=== PATIENT | female | born 1950 | race Caucasian/White ===

== ENCOUNTER 2023-12-29 15:27 | Inpatient (IN) | payer MEDICARE, OTHER, SELFPAY ==
--- NOTE | ~2023-12-29 | XR_ITS ---
EXAMINATION: XR femur RT min 2V DATE: 12/29/2023 17:27 INDICATION: Right lower limb spider bite and cellulitis. TECHNIQUE: 2 views of right femur on 4 radiographs were obtained. COMPARISON: None. FINDINGS: Bone alignment is normal. No fracture. The hip joint space is normal. There is mild knee attila int osteoarthritis. No knee joint effusion. No soft tissue gas. IMPRESSION: 1. Mild right knee osteoarthritis. Reviewed, dictated and finalized at location E.
[2023-12-29 15:51] VITALS: PULSE 99; RESP 20; TEMP 36.2; O2SAT 94
[2023-12-29 15:54] VITALS: BP 113/70
--- NOTE | 2023-12-29 16:46 | ED.GENADULT ---
HPI - General Adult General Chief complaint: Skin/Abscess/Foreign Body <Jesse Kwon PA-C - Last Filed: 12/29/23 19:50> Stated complaint: spider bite <BHAVIN Lorenzo Last Filed: 12/29/23 19:50> Time Seen by Provider: 12/29/23 16:05 <BHAVIN Lorenzo Last Filed: 12/29/23 19:50> Source: patient <BHAVIN Lorenzo Last Filed: 12/29/23 19:50> Mode of arrival: ambulatory <BHAVIN Lorenzo Last Filed: 12/29/23 19:50> Limitations: no limitations <BHAVIN Lorenzo Last Filed: 12/29/23 19:50> History of Present Illness HPI narrative: This is a 73-year-old female with PMH of HTN who presents to the ED for chief complaint of a spider bite to the right leg. Reports that this occurred around 5 days ago. She was seen by primary care doctor the next day given Bactrim prescription. She has been on Bactrim for 3-4 days. States the redness continues to expand outward from the bite. Reports a dark area to the central bite. States the area is warm and tender to touch. Denies fevers, chills, nausea, vomiting, diarrhea, cough, abdominal pain. <BHAVIN Lorenzo Last Filed: 12/29/23 19:50> Related Data Home medications: Home Medications Medication Instructions Recorded Confirmed lisinopril 10 mg tablet 10 mg PO DAILY 04/18/22 12/29/23 paroxetine HCl 20 mg tablet 20 mg PO DAILY 04/18/22 12/29/23 albuterol sulfate 90 mcg/actuation 2 puff inhalation Q4H 12/29/23 12/29/23 aerosol inhaler calcium carbonate 600 mg-vitamin 1 tablet PO BID 12/29/23 12/29/23 D3 5 mcg (200 unit) tablet <BHAVIN Lorenzo Last Filed: 12/29/23 19:50> Allergies/adverse reactions: Allergies Allergy/AdvReac Type Severity Reaction Status Date / Time clindamycin [From Cleocin] Allergy Intermediate Hives Verified 12/29/23 15:55 codeine Allergy Mild Hives Verified 12/29/23 15:55 doxycycline [From Vibramycin] Allergy Mild Hives Verified 12/29/23 15:55 oxytetracycline Allergy Mild Hives Verified 12/29/23 15:55 [From Terramycin] methylprednisolone Allergy Hives Verified 12/29/23 15:55 [From Medrol] Penicillins Allergy Hives Verified 12/29/23 15:55 <Jesse Kwon PA-C - Last Filed: 12/29/23 19:50> Review of Systems Review of Systems: All systems as dictated in HPI <BHAVIN Lorenzo Last Filed: 12/29/23 19:50> [facility] Past Medical History Medical History: Medical History (Updated 12/30/23 @ 00:03 by Zo Hagen APRN) Anxiety Asthma Depression Humerus fracture left Hypertension Insomnia Osteopenia Screening mammogram, encounter for <BHAVIN Lorenzo Last Filed: 12/29/23 19:50> Surgical History Surgical History: Surgical History History of appendectomy (~1997) History of cholecystectomy (~1991) History of neurologic surgery sciatic nerve History of orthopedic surgery broken jaw repair History of tubal ligation <BHAVIN Lorenzo Last Filed: 12/29/23 19:50> Family History Family History: Family History Mother Hypertension Malignant tumor of ovary Alzheimers disease Father Alcoholism Other Breast cancer maternal aunt paternal aunt <BHAVIN Lorenzo Last Filed: 12/29/23 19:50> Social History Social History: Social History Smoking packs per day: 0.5 Smoking cigarettes per day: 10.0 Smoking status: Current every day smoker Tobacco type: cigarettes Alcohol intake: never Substance use: never Substance use type: does not use Do You Feel Safe in your Home?: Yes Lack of Transportation: No Lack of Food: Never True Current Housing: I Have Housing Concerned About Future Housing: No Difficulty Paying Gas/Electric Bills: No Difficulty Paying for Meds: No Currently Unemployed: No E
[2023-12-29 17:23] LABS: Basophils Absolute Auto 0.1 K/mm3 (0.0-0.1); Basophils Percent Auto 0.6 % (0.2-1.2); Eosinophils Absolute Auto 0.4 K/mm3 (0-0.3); Eosinophils Percent Auto 3.9 % (0-4.4); Hematocrit 43.8 % (37.0-47.0); Hemoglobin 15.3 g/dL (12.0-15.0); Immature Granulocyte Absolute 0.02 K/mm3 (0.00-0.031); Immature Granulocyte Percent A 0.2 % (0-0.5); Lymphocytes Absolute Auto 2.98 K/mm3 (0.9-3.2); Lymphocytes Percent Auto 30.4 % (18.3-44.2); Mean Corpuscular HGB Conc 34.9 g/dl (32-36); Mean Corpuscular Hemoglobin 34.2 pg (26-34); Mean Corpuscular Volume 97.8 fl (80-100); Mean Platelet Volume 9.7 fl (7.4-10.4); Monocytes Absolute Auto 0.6 K/mm3 (0.1-0.6); Monocytes Percent Auto 6.5 % (2.6-8.5); Neutrophils Absolute Auto 5.7 K/mm3 (1.3-6.7); Neutrophils Percent Auto 58.4 % (45.5-73.1); Platelet Count Result 250 k/mm3 (150-375); Red Blood Count 4.48 M/mm3 (4.2-5.4); Red Cell Distribution Width 13.1 % (11.5-14.5); White Blood Count 9.8 K/mm3 (4.5-10.0)
[2023-12-29 17:58] LABS: Lactic Acid Reflex 0.8 mmol/L (0.7-2.0)
[2023-12-29 18:01] LABS: Alanine Aminotransferase 12 U/L (6-35); Albumin Level 4.4 g/dL (3.5-5.1); Alkaline Phosphatase 85 U/L (38-126); Anion Gap 7 mmol/L (4-12); Aspartate Amino Transferase 22 U/L (14-36); Bilirubin,Total 0.6 mg/dL (0.2-1.3); Blood Urea Nitrogen 20 mg/dL (7-17); CRP 0.6 mg/dL (<1.0); Calcium 9.6 mg/dL (8.4-10.2); Carbon Dioxide 26 mmol/L (22-30); Chloride 103 mmol/L (98-107); Estimated CRCL calculation 34 ml/min; Estimated Glomerular Filt Rate 40; Glucose 91 mg/dL (65-110); Potassium 4.2 mmol/L (3.4-5.0); Sodium 136 mmol/L (137-145)
[2023-12-29] MEDS: CEFEPIME 2 GM/NS 50 ML 2 GM/50 ML BAG IVPB (18:49)
[2023-12-29] MEDS: ACETAMINOPHEN 500 MG TABLET 1000 MG PO (18:49)
[2023-12-29] MEDS: SODIUM CHLORIDE 0.9% IV 1,000 ML 999 ML IV CONT (18:51)
--- NOTE | 2023-12-29 18:56 | PM.IMHP ---
H&P: HPI History of Present Illness Date/Time: 12/29/23 18:56 Chief Complaint: Right leg skin redness and irritation suspect spider bite Narrative: 73-year-old female with PMHx: of HTN compliant with medication presented to the emergency room with a chief complaint of increasing skin irritation redness swelling and pain. Patient states that she was diagnosed with suspected spider bite to right leg she went to her PCP was given a prescription for Bactrim which she took for 4 days, patient reports no relief an area continued to get larger, patient reports she noticed a dark area in the middle of where she was bitten she admits ongoing warmth and tenderness, she denies any fever chills nausea vomiting or abdominal pain or chest pain at this time. She admits she is an everyday smoker and has a history of COPD. ED Work-up reveals: Initial vitals: b/p 113/70, rr 20 pr 99, sp02 94 % on RA, T: 97.2, labs reveal normal white count, CRP and lactic acid are normal right femur x-ray is low suspicion for necrotizing infection at this time, vancomycin and cefepime initiated in the ED patient agree to admission for further antibiotic treatment Review of Systems Review of Systems: All systems reviewed & are unremarkable except as noted in HPI and below PMFSH Past Medical History Medical History (Updated 12/30/23 @ 00:03 by Zo Hagen APRN) Anxiety Asthma Depression Humerus fracture left Hypertension Insomnia Osteopenia Screening mammogram, encounter for Surgical History Surgical History History of appendectomy (~1997) History of cholecystectomy (~1991) History of neurologic surgery sciatic nerve History of orthopedic surgery broken jaw repair History of tubal ligation Family History Family History Mother Hypertension Malignant tumor of ovary Alzheimers disease Father Alcoholism Other Breast cancer maternal aunt paternal aunt Social History Social History Smoking packs per day: 0.5 Smoking cigarettes per day: 10.0 Smoking status: Current every day smoker Tobacco type: cigarettes Alcohol intake: never Substance use: never Substance use type: does not use Do You Feel Safe in your Home?: Yes Lack of Transportation: No Lack of Food: Never True Current Housing: I Have Housing Concerned About Future Housing: No Difficulty Paying Gas/Electric Bills: No Difficulty Paying for Meds: No Currently Unemployed: No Education: Grade School Difficulty w/ Childcare or Family Care: No Living arrangements: other Additional living arrangements comments: Occupation/Education: retired Gender identity (if verbalized by the patient): Female Sexual Orientation (if Verbalized by the Patient): Straight or Heterosexual Spiritual care concerns: No Meds Home Medications and Allergies Home Medications Medication Instructions Recorded Confirmed Type lisinopril 10 mg tablet 10 mg PO DAILY 04/18/22 12/29/23 History paroxetine HCl 20 mg tablet 20 mg PO DAILY 04/18/22 12/29/23 History albuterol sulfate 90 mcg/actuation 2 puff inhalation Q4H 12/29/23 12/29/23 History aerosol inhaler calcium carbonate 600 mg-vitamin 1 tablet PO BID 12/29/23 12/29/23 History D3 5 mcg (200 unit) tablet Allergies Allergy/AdvReac Type Severity Reaction Status Date / Time clindamycin [From Cleocin] Allergy Intermediate Hives Verified 12/29/23 15:55 codeine Allergy Mild Hives Verified 12/29/23 15:55 doxycycline [From Vibramycin] Allergy Mild Hives Verified 12/29/23 15:55 oxytetracycline Allergy Mild Hives Verified 12/29/23 15:55 [From Terramycin] methylprednisolone Allergy Hives Verified 12/29/23 15:55 [From Medrol] Penicillins Allergy Hives Verified 12/29/23 15:55 Vital Signs Vital Signs - 24 hr
[2023-12-29] MEDS: VANCOMYCIN 1,250 MG/NS 250 ML 1,250 MG/250 ML BAG 166.67 MG IVPB (20:00)
[2023-12-29 20:57] VITALS: TEMP 37
[2023-12-29 21:20] VITALS: BP 116/83; PULSE 72; RESP 18; TEMP 37; O2SAT 97
[2023-12-29 21:30] VITALS: BMI 31.4
[2023-12-30 04:35] VITALS: BP 101/60; PULSE 71; PULSE 72; RESP 16; TEMP 36.1; O2SAT 100
[2023-12-30] MEDS: ALBUTEROL SULFATE (*SP) AEROSOL 1 PUFF 2 PUFF INHALATION ×6 (04:35→23:56)
[2023-12-30 05:13] LABS: Appearance Urine Clear (Clear); Bacteria Urine None Seen /hpf; Bilirubin Urine Negative (Negative); Blood Urine Trace (Negative); Color Urine Yellow (Yellow); Glucose Urine UA Negative (Negative); Ketones Urine Negative (Negative); Leukocyte Esterase Ur 1+ LEU/UL (Negative); Need Manual Microscopic Reviewed; Nitrate Urine Negative (Negative); Non Pathogenic Casts 0-2; Protein Urine Negative (Negative); Specific Grav Ur 1.016 (1.001-1.035); Squamous Epithelial Cell Urine None Seen /hpf (Few); Urobilinogen Urine 0.2 mg/dL (<2.0); WBC Urine 0-5 /hpf (0-3)
[2023-12-30 05:14] LABS: Add Urine Microscopic? YES
[2023-12-30] MEDS: CEFEPIME 1 GM/NS 50 ML 1 GM/50 ML BAG IVPB ×2 (06:00→18:05)
[2023-12-30 06:29] LABS: Alanine Aminotransferase 11 U/L (6-35); Albumin Level 3.9 g/dL (3.5-5.1); Alkaline Phosphatase 80 U/L (38-126); Anion Gap 5 mmol/L (4-12); Aspartate Amino Transferase 24 U/L (14-36); Bilirubin,Total 0.7 mg/dL (0.2-1.3); Blood Urea Nitrogen 17 mg/dL (7-17); Calcium 8.9 mg/dL (8.4-10.2); Carbon Dioxide 26 mmol/L (22-30); Chloride 106 mmol/L (98-107); Estimated CRCL calculation 42 ml/min; Estimated Glomerular Filt Rate 49; Glucose 92 mg/dL (65-110); Potassium 4.1 mmol/L (3.4-5.0); Sodium 137 mmol/L (137-145)
--- NOTE | 2023-12-30 08:22 | PM.IMPN ---
Progress Note: A&P Assessment and Plan (1) Cellulitis: Code(s): L03.90 - Cellulitis, unspecified Status: Acute Assessment and Plan: -see skin exam -continue renal dose cefepime 1gm IVBP q12 hr -continue vancomycin Q 36 hours -continue monitor site for any signs of worsening infection -blood cultures pending -surgery consulted for possible I/D- no intervention needed (2) Depression: Code(s): F32.A - Depression, unspecified Status: Acute Assessment and Plan: -on home Paxil 20mg daily- will continue (3) Hypertension: Code(s): I10 - Essential (primary) hypertension Status: Acute Assessment and Plan: -chronic, compliant with medication -continue home medication lisinopril Plan Continue home medications: VTE Prophylaxis: Enoxaparin DIET: Heart healthy Anticipated hospital stay: > 2 days Code Status: Full code Time Spent With Patient Time with patient: 25 - 35 minutes Subjective Date/time seen: 12/30/23 08:22 Interval history: Narrative retrieved from h/p: 73-year-old female with PMHx: of HTN compliant with medication presented to the emergency room with a chief complaint of increasing skin irritation redness swelling and pain. Patient states that she was diagnosed with suspected spider bite to right leg she went to her PCP was given a prescription for Bactrim which she took for 4 days, patient reports no relief an area continued to get larger, patient reports she noticed a dark area in the middle of where she was bitten she admits ongoing warmth and tenderness, she denies any fever chills nausea vomiting or abdominal pain or chest pain at this time. She admits she is an everyday smoker and has a history of COPD. ED Work-up reveals: Initial vitals: b/p 113/70, rr 20 pr 99, sp02 94 % on RA, T: 97.2, labs reveal normal white count, CRP and lactic acid are normal right femur x-ray is low suspicion for necrotizing infection at this time, vancomycin and cefepime initiated in the ED patient agree to admission for further antibiotic treatment 12/29- surgery was consulted and no I/d is recommended. also unless there is a significant improvement with antibiotics- it would be prudent to stop antibiotic- use ice, tylenol and ibuprofen open and f/u with surgery in a week. There is a significant local reaction to what appears to be a necrotic to insect bite. Discussed with pt- will watch her overnight and anticipate discharge tomorrow. Review of Systems Review of Systems: All systems reviewed & are unremarkable except as noted in HPI and below Exam Narrative: General: A well-developed, nontoxic-appearing ,pleasant HEENT: PERRL, EOMI. Oral mucosa moist. Neck: Supple. No midline cervical tenderness. Respiratory: Respirations are non- labored and lungs are clear to auscultation bilaterally. Cardiovascular: Regular rate and rhythm with S1-S2. Gastrointestinal: Abdomen is soft, non-tender, and non-distended with positive bowel sounds. Skin: Large13 x 10 cm area of erythema with 3 cm concentric darkening (Purple-selena) in the middle of the rash. There is a central small blistering lesion. no active drainage. Tender to palpation. Blanching. Extremities: No cyanosis, clubbing, or edema. Radial and pedal pulses intact. Neurological: Alert and oriented. Cranial nerves 2-12 are grossly intact. No gross focal deficits to casual conversation. Psychiatric: Pleasant and cooperative with normal mood and affect. Judgment and insight intact. Const: General: comfortable Resp: Effort & Inspection: normal respiratory effort Auscultation: clear to auscultation bilaterally Neuro: General: gait normal Speech: normal speech Psych: Mental Status: mental status grossly normal Objective Data Vital Signs Vital Signs: Vital Signs - 24 hr 12/29/23 15:51 12/29/23 15:54 12/29/23 20:57 Temperature 97.2 F L 98.6 F Pulse Rate 99 Respiratory Rate 20 Blood Pressure 113/
[2023-12-30] MEDS: lisinopriL 10 MG TABLET PO (08:43)
[2023-12-30] MEDS: ENOXAPARIN 40 MG/0.4 ML SYRINGE SUB-Q (08:43)
[2023-12-30] MEDS: CALCIUM/VITAMIN D 500 MG/5 MCG (200 I.U.) TABLET PO ×2 (08:43→16:25)
[2023-12-30] MEDS: PARoxetine 20 MG TABLET PO (08:43)
[2023-12-30 09:45] VITALS: TEMP 36.3
[2023-12-30] MEDS: ACETAMINOPHEN 325 MG TABLET 650 MG PO ×2 (09:56→16:33)
--- NOTE | 2023-12-30 12:30 | PM.CNGS ---
Assessment and Plan Assessment and plan (1) Venomous spider bite: Code(s): T63.301A - Toxic effect of unspecified spider venom, accidental (unintentional), initial encounter Status: Acute Assessment and Plan: Not sure if this is a spider bite or other insect bite but patient has certainly had a significant local reaction to what appears to be a necrotic to insect bite. Brown recluse spider bite would be extremely unusual in a [place] but bite may have a curved before she went to the [email or web address] or spider may have been in her clothes and just bit her as she was leaving the [email or web address]. Regardless, there certainly seems to be a sizable area of tissue injury associated with some type of insect bite. The central area and bullous lesion will likely become necrotic. No need for surgical debridement at this time and it is very likely this will never require surgical debridement. Typically these are followed as an outpatient and I would recommend early discharge and I can see her in the office next week. I discussed my findings with the patient and her daughter. Patient can be up but would not he very active. Ice may help with the pain. She can also take Tylenol or Advil. Her appetite has returned since she is in the hospital. It does not appear she has developed any systemic symptoms from this. I discussed my findings with the hospitalist. Unless there is is a significant improvement with her current antibiotics, I would probably discharge her home and she can follow up with me serially as an outpatient for further care. (2) Cellulitis: Qualifiers: Site of cellulitis: extremity Site of cellulitis of extremity: lower extremity Laterality: right Qualified Code(s): L03.115 - Cellulitis of right lower limb Code(s): L03.90 - Cellulitis, unspecified Status: Acute Assessment and Plan: Not sure cellulitis exists as this could all be tissue reaction to venom or toxin. Please see above. The new erythematous lesions on the medial thigh and distal left thigh do not do note anything significant to me. Recommend outpatient follow-up. History of Present Illness Consult details Consult date: 12/30/23 Reason for consult: wound care (Insect bite right posterolateral thigh) Requesting physician: Adwoa Robledo, TREVOR Narrative: Patient is a 73-year-old woman who has a history of smoking and COPD as well as hypertension. Six days ago, [place] [facility] in the morning. As she was leaving, she noticed pain in the posterolateral right thigh. The pain worsened and she looked at it when she got home. There was erythema in the area similar to a bite. She has no recollection of seeing any type of insect such as a spider or tick that morning. She called her doctor and was started on Bactrim. She was also given a antihistamine the next day. She took the Bactrim 4 days but the area of erythema was continuing to grow. She came to the emergency room yesterday. She was noted to have a 13 x 10 cm red tender rash with a central more intense north fork of erythema. At the center of this, there was some darker tissue and a blister. Patient has had no nausea or vomiting but has not had much of an appetite until she came to the hospital. She has not noticed any muscle aches chills or fever. She is not anemic. Her labs do show some evidence of acute or chronic renal insufficiency which has improved since she was in the emergency room yesterday. She has been on IV antibiotics of vancomycin and cefepime since being in the hospital. She has not had anything stronger than acetaminophen for pain. I was asked to see the patient in consultation regarding management and potential need for surgical debridement. Patient has noticed a small reddened area on the inner medial aspect of the right thigh and even just above the left knee that she describes as new. Review of Systems Review of Systems: All systems reviewed & are unremarkabl
[2023-12-30 13:59] VITALS: BP 122/65; PULSE 82; RESP 20; TEMP 36.2; O2SAT 98
[2023-12-30] MEDS: VANCOMYCIN 1,250 MG/NS 250 ML 1,250 MG/250 ML BAG 166 MG IVPB (19:54)
[2023-12-30 20:01] VITALS: PULSE 76; RESP 18; O2SAT 96
[2023-12-30 20:35] VITALS: BP 127/74; PULSE 65; RESP 18; TEMP 36.4; O2SAT 100
[2023-12-31] MEDS: ALBUTEROL SULFATE (*SP) AEROSOL 1 PUFF 2 PUFF INHALATION ×3 (04:25→11:12)
[2023-12-31 05:44] VITALS: BP 122/82; PULSE 64; RESP 18; TEMP 36.4; O2SAT 98
[2023-12-31] MEDS: CEFEPIME 1 GM/NS 50 ML 1 GM/50 ML BAG IVPB (06:04)
[2023-12-31 06:23] LABS: Alanine Aminotransferase 11 U/L (6-35); Albumin Level 3.9 g/dL (3.5-5.1); Alkaline Phosphatase 84 U/L (38-126); Anion Gap 4 mmol/L (4-12); Aspartate Amino Transferase 21 U/L (14-36); Bilirubin,Total 0.5 mg/dL (0.2-1.3); Blood Urea Nitrogen 12 mg/dL (7-17); Carbon Dioxide 28 mmol/L (22-30); Chloride 105 mmol/L (98-107); Estimated CRCL calculation 46 ml/min; Estimated Glomerular Filt Rate 55; Glucose 99 mg/dL (65-110); Potassium 3.9 mmol/L (3.4-5.0); Sodium 137 mmol/L (137-145)
[2023-12-31 07:22] VITALS: PULSE 71; RESP 18; O2SAT 97
[2023-12-31] MEDS: PARoxetine 20 MG TABLET PO (08:07)
[2023-12-31] MEDS: lisinopriL 10 MG TABLET PO (08:07)
[2023-12-31] MEDS: ENOXAPARIN 40 MG/0.4 ML SYRINGE SUB-Q (08:07)
[2023-12-31] MEDS: CALCIUM/VITAMIN D 500 MG/5 MCG (200 I.U.) TABLET PO (08:07)
--- NOTE | 2023-12-31 09:59 | PM.IMPN ---
Progress Note: A&P Assessment and Plan (1) Cellulitis: Qualifiers: Laterality: right Site of cellulitis: extremity Site of cellulitis of extremity: lower extremity Qualified Code(s): L03.115 - Cellulitis of right lower limb Code(s): L03.90 - Cellulitis, unspecified Status: Acute Assessment and Plan: -see skin exam -continue renal dose cefepime 1gm IVBP q12 hr -continue vancomycin Q 36 hours -continue monitor site for any signs of worsening infection -blood cultures pending -surgery consulted for possible I/D- no intervention needed (2) Depression: Code(s): F32.A - Depression, unspecified Status: Acute Assessment and Plan: -on home Paxil 20mg daily- will continue (3) Hypertension: Code(s): I10 - Essential (primary) hypertension Status: Acute Assessment and Plan: -chronic, compliant with medication -continue home medication lisinopril Plan Continue home medications: VTE Prophylaxis: Enoxaparin DIET: Heart healthy Anticipated hospital stay: > 2 days Code Status: Full code Subjective Date/time seen: 12/31/23 09:59 Interval history: Narrative retrieved from h/p: 73-year-old female with PMHx: of HTN compliant with medication presented to the emergency room with a chief complaint of increasing skin irritation redness swelling and pain. Patient states that she was diagnosed with suspected spider bite to right leg she went to her PCP was given a prescription for Bactrim which she took for 4 days, patient reports no relief an area continued to get larger, patient reports she noticed a dark area in the middle of where she was bitten she admits ongoing warmth and tenderness, she denies any fever chills nausea vomiting or abdominal pain or chest pain at this time. She admits she is an everyday smoker and has a history of COPD. ED Work-up reveals: Initial vitals: b/p 113/70, rr 20 pr 99, sp02 94 % on RA, T: 97.2, labs reveal normal white count, CRP and lactic acid are normal right femur x-ray is low suspicion for necrotizing infection at this time, vancomycin and cefepime initiated in the ED patient agree to admission for further antibiotic treatment 12/29- surgery was consulted and no I/d is recommended. also unless there is a significant improvement with antibiotics- it would be prudent to stop antibiotic- use ice, tylenol and ibuprofen open and f/u with surgery in a week. There is a significant local reaction to what appears to be a necrotic to insect bite. Discussed with pt- will watch her overnight and anticipate discharge tomorrow. Review of Systems Review of Systems: All systems reviewed & are unremarkable except as noted in HPI and below Exam Narrative: General: A well-developed, nontoxic-appearing ,pleasant HEENT: PERRL, EOMI. Oral mucosa moist. Neck: Supple. No midline cervical tenderness. Respiratory: Respirations are non- labored and lungs are clear to auscultation bilaterally. Cardiovascular: Regular rate and rhythm with S1-S2. Gastrointestinal: Abdomen is soft, non-tender, and non-distended with positive bowel sounds. Skin: Large13 x 10 cm area of erythema with 3 cm concentric darkening (Purple-selena) in the middle of the rash. There is a central small blistering lesion. no active drainage. Tender to palpation. Blanching. Extremities: No cyanosis, clubbing, or edema. Radial and pedal pulses intact. Neurological: Alert and oriented. Cranial nerves 2-12 are grossly intact. No gross focal deficits to casual conversation. Psychiatric: Pleasant and cooperative with normal mood and affect. Judgment and insight intact. Const: General: comfortable Resp: Effort & Inspection: normal respiratory effort Auscultation: clear to auscultation bilaterally Neuro: General: gait normal Speech: normal speech Psych: Mental Status: mental status grossly normal Objective Data Vital Signs Vital Signs: Vital Signs - 24 hr 12/30/23 13
--- NOTE | 2023-12-31 10:40 | PM.PNGS ---
Progress Note: A&P Assessment and Plan (1) Venomous spider bite: Code(s): T63.301A - Toxic effect of unspecified spider venom, accidental (unintentional), initial encounter Status: Acute Assessment and Plan: This is my first day seeing the insect bite. Family is concerned that the erythematous area has spread over the past 24 hours. Nursing marked around the new erythematous border this morning. It is reasonable to monitor for another day on IV antibiotics if the primary service wishes. There is no evidence of an abscess or any necrotic tissue that would require surgical intervention. She can follow-up with Dr. Christine as an outpatient to monitor this area. (2) Cellulitis: Qualifiers: Laterality: right Site of cellulitis: extremity Site of cellulitis of extremity: lower extremity Qualified Code(s): L03.115 - Cellulitis of right lower limb Code(s): L03.90 - Cellulitis, unspecified Status: Acute Assessment and Plan: Erythematous area that may be a reaction to the insect bite. Not definitively cellulitis. See plan above. Subjective Subjective Date/Time Seen: 12/31/23 10:40 Patient reports: no new complaints and afebrile Interval history: Patient seen this morning with her daughter at the bedside. She denies any specific complaints at this time. Her daughter is concerned as she has been with her mom everyday since the redness started and she reports the redness has spread further out since yesterday. The nurse put new markings around the redness this morning. Per nursing, the blister in the center of the redness popped last night and the nurse overnight sent a wound culture of the fluid. Today, it is dry and no longer draining. Exam Const: General: comfortable and no acute distress Orientation/consciousness: patient oriented x3 Extrem: Other: There is an erythematous rash with central deeper red and a decompressed bulla that still has minimal serous fluid present, but dry and intact now. Erythema extending beyond demarcated lines and has been marked again this morning at the border. Currently fluctuance or abscess, no obvious necrotic tissue, and no drainage this morning. There is a small slightly erythematous area just above and lateral the knee that appears unchanged without tenderness or induration. Objective Data Vital Signs Vital Signs: Vital Signs - 24 hr 12/30/23 13:59 12/30/23 20:01 12/30/23 20:01 Temperature 97.2 F L Pulse Rate 82 76 Respiratory Rate 20 18 Blood Pressure 122/65 Pulse Oximetry 98 96 Oxygen Delivery Room Air Fraction of Inspired Oxygen 12/30/23 20:35 12/30/23 20:00 12/31/23 05:44 Temperature 97.6 F 97.6 F Pulse Rate 65 64 Respiratory Rate 18 18 Blood Pressure 127/74 122/82 Pulse Oximetry 100 98 Oxygen Delivery Room Air Fraction of Inspired Oxygen 12/31/23 07:22 12/31/23 07:22 12/31/23 08:00 Temperature Pulse Rate 71 Respiratory Rate 18 Blood Pressure Pulse Oximetry 97 Oxygen Delivery Room Air Room Air Fraction of Inspired Oxygen 21 Intake/Output Intake/Output: Intake & Output 12/28/23 12/29/23 12/30/23 12/31/23 23:59 23:59 23:59 23:59 Intake Total 1300 1306 170 Output Total 1000 1300 Balance 1300 306 -1130 Meds/Results Medications: Active Medications Generic Name Dose Route Start Last Admin Trade Name Freq PRN Reason Stop Dose Admin Acetaminophen 650 mg 12/29/23 18:56 12/30/23 16:33 Acetaminophen 325 Mg Tablet PO 650 mg Q4H PRN Administration Mild Pain (1-3) or Fever Albuterol 2 puff 12/30/23 00:00 12/31/23 07:22 Albuterol Sulfate (*Sp) Aerosol 1 Puff INHALATION 2 puff Q4HRT SELINA Administration Calcium Carbonate 500 mg 12/30/23 09:00 12/31/23 08:07 Calcium/Vitamin D 500 Mg/5 Mcg (200 I.U.) Tablet PO 01/29/24 08:59 500 mg BID SELINA Administration Enoxaparin Sodium 40 mg 12/30/23 09:00 12/31/23 08:07 Enoxaparin 40 Mg/0.4 Ml
--- NOTE | 2023-12-31 13:06 | PM.DS ---
DS: Admitting Diagnosis Discharge Date 12/30 Admitting Diagnosis bug bite DS: Discharge Diagnosis Discharge Diagnosis (1) Cellulitis: Qualifiers: Laterality: right Site of cellulitis: extremity Site of cellulitis of extremity: lower extremity Qualified Code(s): L03.115 - Cellulitis of right lower limb Code(s): L03.90 - Cellulitis, unspecified Status: Acute Assessment and Plan: -see skin exam -continue renal dose cefepime 1gm IVBP q12 hr -continue vancomycin Q 36 hours -continue monitor site for any signs of worsening infection -blood cultures pending -surgery consulted for possible I/D- no intervention needed (2) Depression: Code(s): F32.A - Depression, unspecified Status: Acute Assessment and Plan: -on home Paxil 20mg daily- will continue (3) Hypertension: Code(s): I10 - Essential (primary) hypertension Status: Acute Assessment and Plan: -chronic, compliant with medication -continue home medication lisinopril Plan Final dx: Toxic effect of unspecified spider venom, accidental (unintentional) Continue home medications: VTE Prophylaxis: Enoxaparin DIET: Heart healthy Anticipated hospital stay: > 2 days Code Status: Full code DS: Summary Hospital Course Hospital Course: Narrative retrieved from h/p: 73-year-old female with PMHx: of HTN compliant with medication presented to the emergency room with a chief complaint of increasing skin irritation redness swelling and pain. Patient states that she was diagnosed with suspected spider bite to right leg she went to her PCP was given a prescription for Bactrim which she took for 4 days, patient reports no relief an area continued to get larger, patient reports she noticed a dark area in the middle of where she was bitten she admits ongoing warmth and tenderness, she denies any fever chills nausea vomiting or abdominal pain or chest pain at this time. She admits she is an everyday smoker and has a history of COPD. ED Work-up reveals: Initial vitals: b/p 113/70, rr 20 pr 99, sp02 94 % on RA, T: 97.2, labs reveal normal white count, CRP and lactic acid are normal right femur x-ray is low suspicion for necrotizing infection at this time, vancomycin and cefepime initiated in the ED patient agree to admission for further antibiotic treatment 12/29- surgery was consulted and no I/d is recommended. also unless there is a significant improvement with antibiotics- it would be prudent to stop antibiotic- use ice, tylenol and ibuprofen open and f/u with surgery in a week. There is a significant local reaction to what appears to be a necrotic to insect bite. Discussed with pt- will watch her overnight and anticipate discharge tomorrow. 12/30- pt wants to go home. discharged taking antibiotics, monitoring for fever, drainage and erythema. Surgery is to call pt to get a f/u andry in a week. Status at Discharge Functional status at discharge: independent ambulation Overall status at discharge: patient is back to baseline Time Spent with Patient Time attestation: Total time spent providing and/or coordinating discharge services: Time spent: Less than 30 minutes Exam Narrative: General: A well-developed, nontoxic-appearing ,pleasant HEENT: PERRL, EOMI. Oral mucosa moist. Neck: Supple. No midline cervical tenderness. Respiratory: Respirations are non- labored and lungs are clear to auscultation bilaterally. Cardiovascular: Regular rate and rhythm with S1-S2. Gastrointestinal: Abdomen is soft, non-tender, and non-distended with positive bowel sounds. Skin: Large13 x 10 cm area of erythema with 3 cm concentric darkening (Purple-selena) in the middle of the rash. There is a central small blistering lesion. no active drainage. Tender to palpation. Blanching.bite site- is improved today Extremities: No cyanosis, clubbing, or edema. Radial and pedal pulses intact. Neurological: Alert and oriented. Cranial nerves 2-12
--- NOTE | 2024-01-04 10:01 | PC.NURSE ---
Wound cx shows no growth.
== END 2023-12-31 13:35 | disposition home or self-care (01) | DRG 603 ==
LOC: ANHED 18:59 → ANH3MEDSUR 20:15
PROVIDERS: Nurse Practitioner; Admitting Provider Hospitalist; Emergency Provider Physician Assistant; PCP Internal Medicine; Visit Provider Hospitalist
DX: L03.115 Cellulitis of right lower limb (principal); T63.301A Toxic effect of unspecified spider venom, accidental (unintentional), initial encounter; I10 Essential (primary) hypertension; J44.9 Chronic obstructive pulmonary disease, unspecified; M85.80 Other specified disorders of bone density and structure, unspecified site; F32.A Depression, unspecified; F41.9 Anxiety disorder, unspecified; F17.210 Nicotine dependence, cigarettes, uncomplicated
CPT/HCPCS: 36415; 73552; 80053; 81001; 82565; 83605; 85025; 86140; 87040; 87070; 87205; 94640; 96365; 96367; 99285; A9270; G0378; J0692; J1650; J3370; J7030

== ENCOUNTER 2024-09-07 08:21 | Emergency (ER) | payer MEDICARE, OTHER, SELFPAY ==
--- NOTE | 2024-09-07 09:00 | ED.GENADULT ---
HPI - General Adult General Chief complaint: Unspecified Stated complaint: open sores Time Seen by Provider: 09/07/24 08:31 History of Present Illness HPI narrative: Patient is a 73-year-old female who was brought to the ER by her daughter due to concern for sores across her body. Apparently patient has itching and picks at her skin. There is concern previously that she had infections so she had been prescribed mupirocin as well as Bactrim. They have finished the Bactrim. No new fevers or chills or sweats. No purulent discharge. 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 Patient does have hydroxyzine for itching but it makes her sleepy. No additional issues. Related Data Home Medications ?Medication ?Instructions ?Recorded ?Confirmed ?Last Taken ?Type lisinopril 10 mg tablet 10 mg PO DAILY 04/18/22 01/08/24 Unknown History paroxetine HCl 20 mg tablet 20 mg PO DAILY 04/18/22 01/08/24 Unknown History albuterol sulfate 90 mcg/actuation 2 puff inhalation Q4H 12/29/23 01/08/24 Unknown History aerosol inhaler calcium 600 mg (as 1 tablet PO BID 12/29/23 01/08/24 Unknown History carbonate)-vitamin D3 5 mcg (200 unit) tablet Allergies Allergy/AdvReac Type Severity Reaction Status Date / Time clindamycin (From Cleocin) Allergy Intermediate Hives Verified 01/07/24 10:39 codeine Allergy Mild Hives Verified 01/07/24 10:39 doxycycline (From Vibramycin) Allergy Mild Hives Verified 01/07/24 10:39 oxytetracycline (From Allergy Mild Hives Verified 01/07/24 10:39 Terramycin) methylprednisolone (From Allergy Hives Verified 01/07/24 10:39 Medrol) Penicillins Allergy Hives Verified 01/07/24 10:39 Review of Systems Constitutional: Constitutional: Reports no additional constitutional complaints Cardiovascular: Cardiovascular: Reports no additional cardiovascular complaints Respiratory: Respiratory: Reports no additional respiratory complaints Integumentary/Breasts: Skin/Breast: Reports system reviewed and no additional complaints, except as docu PMFSH Past Medical History Medical History Anxiety Asthma Depression Humerus fracture left Hypertension Insomnia Osteopenia Screening mammogram, encounter for Surgical History Surgical History History of appendectomy (~1997) History of cholecystectomy (~1991) History of neurologic surgery sciatic nerve History of orthopedic surgery broken jaw repair History of tubal ligation Family History Family History Mother Hypertension Malignant tumor of ovary Alzheimers disease Father Alcoholism Other Breast cancer maternal aunt paternal aunt Social History Social History Smoking packs per day: 0.5 Smoking cigarettes per day: 10.0 Smoking status: Current every day smoker Tobacco type: cigarettes Alcohol intake: never Substance use: never Substance use type: does not use Do You Feel Safe in your Home?: Yes Lack of Transportation: No Lack of Food: Never True Current Housing: I Have Housing Concerned About Future Housing: No Difficulty Paying Gas/Electric Bills: No Difficulty Paying for Meds: No Currently Unemployed: No Education: Grade School Difficulty w/ Childcare or Family Care: No Living arrangements: other Additional living arrangements comments: Occupation/Education: retired Gender identity (if verbalized by the patient): Female Sexual Orientation (if Verbalized by the Patient): Straight or Heterosexual Spiritual care concerns: No Exam Narrative: GENERAL: Well-appearing, well-nourished, and in no acute distress. HEAD: Normocephalic, atraumatic. ENT: Mucous membranes moist. CHEST: Clear to auscultation. No respiratory distress. HEART: Regular rate and rhythm. Normal peripheral pulses. ABDOMEN: Soft, nontender, nondistended. EXTREMITIES: Normal range of motion. No edema. SKIN: Warm, dry, no rash. Pick mata to the back and hips and legs without cellulitis or blisters/vesicle/pustules. NEURO: Alert and oriented x3. PSYCH: Normal mood and affect. Course Course Emergency Course: Discussed with patient daughter that there is no significant emergency at this point. There is no evidence infection. Patient needs to stop picking at her skin and continue taking antipyretics such as Benadryl or hydroxyzine. She will be discharged and can follow up with her PCP. Discharge Plan Discharge Clinical Impression: Excoriation (skin-picking) disorder Patient Disposition: Home, Self-Care Condition: Stable Additional Instructions: Take Benadryl or hydroxyzine to help with your itching and picking. If it makes you sleepy cut the pill in half. Patient Language: Belarusian Prescriptions: No Action paroxetine HCl 20 mg tablet 20 mg PO DAILY lisinopril 10 mg tablet 10 mg PO DAILY calcium carbonate-vitamin D3 600 mg-5 mcg (200 unit) Tablet 1 tablet PO BID albuterol sulfate 90 mcg/actuation HFA aerosol inhaler 2 puff INHALATION Q4H cefuroxime axetil 500 mg tablet 500 mg PO Q12H 5 Days Qty: 10 0RF Follow-up/Referrals: Moisés,Amari Fraser MD [Primary Care Provider] - 1 Week
[2024-09-07 09:12] VITALS: BP 117/79; PULSE 69; RESP 18; TEMP 36.7; O2SAT 96
[2024-09-07 09:44] VITALS: BP 104/75; PULSE 72; RESP 20; TEMP 36.9; O2SAT 100
--- NOTE | 2024-09-07 12:06 | PC.NURSE ---
0930: RN educated pt & daughter to use antibacterial soap, trim fingernails to avoid opening lesions while scratching. Take RX as prescribed by PMD.
== END 2024-09-07 09:45 | disposition home or self-care (01) ==
PROVIDERS: Emergency Provider Emergency Medicine; PCP Internal Medicine
DX: F42.4 Excoriation (skin-picking) disorder (principal); I10 Essential (primary) hypertension; J45.909 Unspecified asthma, uncomplicated; M85.80 Other specified disorders of bone density and structure, unspecified site; F41.9 Anxiety disorder, unspecified; F32.A Depression, unspecified; F17.210 Nicotine dependence, cigarettes, uncomplicated; Z90.49 Acquired absence of other specified parts of digestive tract; Z79.899 Other long term (current) drug therapy
CPT/HCPCS: 99281